=== PATIENT | female | born 1935 | race Caucasian/White ===

== ENCOUNTER 2019-08-31 10:08 | Day surgery (SDC) | payer OTHER ==
[~2019-08-31] VITALS: Ht 165.1 cm; Wt 75.9 kg
[~2019-08-31 10:08] MED LIST: ACET500 PO; ALLO300 PO; ASPI81CH; ASPI81CH PO; ASPI81EC PO; BYDUREON P2 MG/0.65 SQ; CILO50; COLCRYS0.6 MG; Cilostazol50 MG PO; ENAL10; ENAL10 PO; ENAL5 PO; GLIP10ER PO; GLIP5; LEVSOD125; LEVSOD125 PO; LEVSOD137 PO; LOVA20 PO; LOVA40; Lovastatin20 MG; MECL12.5 PO; METF500 PO; METO25; METO25ER; METO50 PO; MULTI VITAMIN1 EACH; NITR.4SL SL; Omeprazole20 M1; PIOG15 PO; RANI150 PO; SITA50T2
[2019-08-31] MEDS ORDERED: LEVSOD112 PO (10:20)
[2019-08-31] MEDS ORDERED: NITR.4SL SL (10:21)
[2019-08-31] MEDS ORDERED: COLCRYS0.6 M1 PO (10:22)
[2019-08-31] MEDS ORDERED: Aspir 8181 MG PO (10:42)
--- NOTE | 2019-08-31 12:15 | NUR ---
DISCHARGE PT REMAINED A&OX3 DURING RECOVERY AND DENIED ANY PAIN. IV DC'D WITH CANDAVE IN TACT. DISCHARGE PAPERWORK GONE OVER WITH PT. PT VERBALLY STATED THE UNDERSTANDING OF THE DISCHARGE EDUCATION AND DENIED ANY QUESTIONS AT THIS TIME. PT WHEELED OUT BY THIS NURSE.
== END 2019-08-31 22:51 | disposition home or self-care (01) ==
LOC: MHTC 10:08
DX: I08.2 Rheumatic disorders of both aortic and tricuspid valves (principal); I70.0 Atherosclerosis of aorta; I10 Essential (primary) hypertension; E66.01 Morbid (severe) obesity due to excess calories; E11.9 Type 2 diabetes mellitus without complications; Z79.84 Long term (current) use of oral hypoglycemic drugs; Z79.82 Long term (current) use of aspirin; Z79.899 Other long term (current) drug therapy; E78.00 Pure hypercholesterolemia, unspecified; Z88.5 Allergy status to narcotic agent; Z88.8 Allergy status to other drugs, medicaments and biological substances; Z88.6 Allergy status to analgesic agent; Z88.4 Allergy status to anesthetic agent; Z91.041 Radiographic dye allergy status; Z68.29 Body mass index [BMI] 29.0-29.9, adult
CPT/HCPCS: 93312; 93325; J2704; J7120

== ENCOUNTER → 2019-09-08 | Outpatient (CLI) | payer OTHER ==
[~2019-09-08] MED LIST changes: +Aspir 8181 MG PO; +COLCRYS0.6 M1 PO; +LEVSOD112 PO
[2019-09-08 10:45] LABS: BASOPHILS ABSOLUTE AUTO 0.06 K/mm3 (0.00-0.23); BASOPHILS PERCENT AUTO 1 % (0-2); EOSINOPHILS ABSOLUTE AUTO 0.19 K/mm3 (0.00-0.68); EOSINOPHILS PERCENT AUTO 3 % (0-6); Hematocrit 35.6 % (33.0-51.0); IMMATURE GRAN ABSOLUTE AUTO 0.03 K/mm3 (0.00-0.10); IMMATURE GRAN PERCENT AUTO 0 % (0-1); LYMPHOCYTES ABSOLUTE AUTO 2.18 K/mm3 (0.84-5.20); LYMPHOCYTES PERCENT AUTO 29 % (21-46); MONOCYTES ABSOLUTE AUTO 0.63 K/mm3 (0.16-1.47); MONOCYTES PERCENT AUTO 8 % (4-13); Mean Corpuscular HGB 30.9 pg (26.0-34.0); Mean Corpuscular HGB Conc 33.7 g/dL (31.5-36.5); Mean Platelet Volume 10.2 fL (9.1-12.4); NEUTROPHILS ABSOLUTE AUTO 4.54 K/mm3 (1.96-9.15); NEUTROPHILS PERCENT AUTO 59 % (41-73); Platelet Count 180 K/mm3 (150-400); RDW Coefficient Variation 13.1 % (11.7-14.2); RDW Standard Deviation 43.9 fL (35.1-46.3); Red Blood Cell Count 3.88 M/mm3 (3.80-5.20); White Blood Cell Count 7.63 K/mm3 (4.00-11.30)
[2019-09-08 10:47] LABS: Mean Corpuscular Volume 92 fL (80-100)
[2019-09-08 11:01] LABS: Alanine Aminotransfer (ALT/SGP 14 U/L (12-78); Albumin, Blood 3.8 g/dL (3.4-5.0); Alk Phos 60 U/L (40-126); Anion Gap 10 mmol/L (6-16); Aspartate Aminotrans (AST/SGOT 19 U/L (12-37); Bilirubin, Total 0.4 mg/dL (0.1-1.0); Blood Urea Nitrogen 36 mg/dL (8-24); Bun/Creatinine Ratio 24.3 (12.0-20.0); CO2, Blood 25 mmol/L (21-32); Calcium, Blood 9.1 mg/dL (8.5-10.1); Chloride, Blood 98 mmol/L (98-108); Creatinine, Blood 1.48 mg/dL (0.40-1.00); Globulin, Blood 3.8 g/dL (2.2-4.0); Glomerular Filtration Rate 34 (60-); Glucose, Blood 112 mg/dL (70-99); Potassium, Blood 4.6 mmol/L (3.5-5.5); Sodium, Blood 133 mmol/L (136-145); Total Protein, Blood 7.6 g/dL (6.4-8.2)
[2019-09-08 11:02] LABS: Troponin I <0.017 ng/mL (0.000-0.040)
== END | disposition home or self-care (01) ==
LOC: LAB SHORT 10:41 → LAB EV 10:41
PROVIDERS: Physician Assistant Medical
DX: R07.9 Chest pain, unspecified (principal)
CPT/HCPCS: 80053; 84484; 85025

== ENCOUNTER 2022-08-06 17:10 | Emergency (ER) | payer OTHER ==
[~2022-08-06] VITALS: Ht 165.1 cm; Wt 77.1 kg
[2022-08-06 17:19] VITALS: BP 189/84
== END 2022-08-06 19:03 | disposition home or self-care (01) ==
LOC: ER 17:10
DX: S01.01XA Laceration without foreign body of scalp, initial encounter (principal); S40.011A Contusion of right shoulder, initial encounter; W01.10XA Fall on same level from slipping, tripping and stumbling with subsequent striking against unspecified object, initial encounter; Z88.8 Allergy status to other drugs, medicaments and biological substances; Z88.5 Allergy status to narcotic agent; Z79.899 Other long term (current) drug therapy; Z79.82 Long term (current) use of aspirin
CPT/HCPCS: 70450; 73030; 99284-25; A9270

== ENCOUNTER 2023-04-01 11:37 | Inpatient (IN) | payer OTHER ==
[~2023-04-01] VITALS: Ht 162.6 cm; Wt 74.8 kg
[~2023-04-01 11:37] MED LIST changes: -ENAL5 PO; -LEVSOD112 PO; -LOVA40; +LOVA40 PO; -METO25; +METO25 PO
[2023-04-01 12:29] LABS: BASOPHILS ABSOLUTE AUTO 0.07 K/mm3 (0.00-0.23); BASOPHILS PERCENT AUTO 1 % (0-2); EOSINOPHILS ABSOLUTE AUTO 0.58 K/mm3 (0.00-0.68); EOSINOPHILS PERCENT AUTO 7 % (0-6); Hematocrit 32.5 % (33.0-51.0); IMMATURE GRAN ABSOLUTE AUTO 0.03 K/mm3 (0.00-0.10); IMMATURE GRAN PERCENT AUTO 0 % (0-1); LYMPHOCYTES ABSOLUTE AUTO 1.96 K/mm3 (0.84-5.20); LYMPHOCYTES PERCENT AUTO 24 % (21-46); MONOCYTES ABSOLUTE AUTO 0.81 K/mm3 (0.16-1.47); MONOCYTES PERCENT AUTO 10 % (4-13); Mean Corpuscular HGB 30.4 pg (26.0-34.0); Mean Corpuscular HGB Conc 33.8 g/dL (31.5-36.5); Mean Corpuscular Volume 90 fL (80-100); Mean Platelet Volume 10.1 fL (9.1-12.4); NEUTROPHILS ABSOLUTE AUTO 4.89 K/mm3 (1.96-9.15); NEUTROPHILS PERCENT AUTO 59 % (41-73); Platelet Count 256 K/mm3 (150-400); RDW Coefficient Variation 12.8 % (11.7-14.2); RDW Standard Deviation 42.3 fL (35.1-46.3); Red Blood Cell Count 3.62 M/mm3 (3.80-5.20); White Blood Cell Count 8.34 K/mm3 (4.00-11.30)
[2023-04-01 13:14] LABS: Albumin, Blood 2.9 g/dL (3.4-5.0); Albumin/Globulin Ratio 0.7 (0.8-1.8); Bilirubin, Total 0.4 mg/dL (0.1-1.0); Bun/Creatinine Ratio 23.7 (12.0-20.0); Calcium, Blood 14.2 mg/dL (8.5-10.1); Creatinine, Blood 1.14 mg/dL (0.40-1.00); Globulin, Blood 4.3 g/dL (2.2-4.0); Potassium, Blood 4.7 mmol/L (3.5-5.5); Total Protein, Blood 7.2 g/dL (6.4-8.2)
[2023-04-01 15:23] LABS: Source, Urine Clean Catch
[2023-04-01 15:27] LABS: Appearance, Urine Hazy (Clear); Bilirubin, Urine Neg (Neg); Blood, Urine Neg (Neg); Color, Urine Yellow (P-Yellow); Glucose Qualitative, Urine Neg (Neg); Ketones, Urine Neg (Neg); Leukocyte Esterase, Urine 2+ (Neg); Nitrite, Urine Neg (Neg); Protein, Urine Neg (Neg); Urobilinogen, Urine NORM (Normal)
[2023-04-01] MEDS ORDERED: ACET500 PO (15:31)
[2023-04-01] MEDS ORDERED: MULVITA PO (15:31)
[2023-04-01 15:52] LABS: Bacteria Many /hpf; Hyaline Casts 0-2 /lpf (0-2); Red Blood Cells, Urine 0-2 /hpf (0-2); Squamous Epithelial Cells Rare /hpf (Few)
[2023-04-01 20:05] VITALS: BP 209/85
--- NOTE | 2023-04-01 22:02 | NUR ---
ADMIT NOTE HANDOFF GIVEN TO DAY RN. DAY RN THEN REPORTED TO ME. PT ARRIVED TO FLOOR VIA GURNEY. PT ORIENTED TO UNIT. PERSONAL POSSESSIONS WITH PT. CALL BUTTON WITHIN REACH. IV FLUIDS INFUSING ORDERED. TELEMETRY IN PLACE. HYPERTENSION NOTED, HOSPITALIST CALLED. MEDICATED PER EMAR.
[2023-04-01 22:27] VITALS: BP 168/77
[2023-04-01] MEDS ORDERED: ERYT.5TO BOTHEYES (23:48)
[2023-04-02] VITALS (8 sets, daily range): BP systolic 138–192; BP diastolic 58–89
--- NOTE | 2023-04-02 04:15 | NUR ---
SHIFT SUMMARY ADMITTED FOR HYPERCALCEMIA. FULL CODE. FOUND TO HAVE UTI. IV FLUIDS INFUSING ORDERED. TELEMETRY: NSR @ 77 BPM. ACHS CBG'S. MONITORING LABS. SHE IS ON RA. REGULAR DIET. A&O X4. BLOOD CULTURES SENT. PRN HYDRALAZINE GIVEN FOR HTN.
[2023-04-02 06:53] LABS: BASOPHILS ABSOLUTE AUTO 0.07 K/mm3 (0.00-0.23); BASOPHILS PERCENT AUTO 1 % (0-2); EOSINOPHILS ABSOLUTE AUTO 0.39 K/mm3 (0.00-0.68); EOSINOPHILS PERCENT AUTO 4 % (0-6); Hematocrit 38.2 % (33.0-51.0); Hemoglobin 13.1 g/dL (11.5-16.0); IMMATURE GRAN ABSOLUTE AUTO 0.04 K/mm3 (0.00-0.10); IMMATURE GRAN PERCENT AUTO 0 % (0-1); LYMPHOCYTES ABSOLUTE AUTO 1.01 K/mm3 (0.84-5.20); LYMPHOCYTES PERCENT AUTO 11 % (21-46); MONOCYTES ABSOLUTE AUTO 0.79 K/mm3 (0.16-1.47); MONOCYTES PERCENT AUTO 8 % (4-13); Mean Corpuscular HGB 30.6 pg (26.0-34.0); Mean Corpuscular HGB Conc 34.3 g/dL (31.5-36.5); Mean Corpuscular Volume 89 fL (80-100); NEUTROPHILS ABSOLUTE AUTO 7.29 K/mm3 (1.96-9.15); NEUTROPHILS PERCENT AUTO 76 % (41-73); RDW Coefficient Variation 12.6 % (11.7-14.2); RDW Standard Deviation 41.2 fL (35.1-46.3); Red Blood Cell Count 4.28 M/mm3 (3.80-5.20); White Blood Cell Count 9.59 K/mm3 (4.00-11.30)
[2023-04-02 06:58] LABS: Mean Platelet Volume 11.2 fL (9.1-12.4)
[2023-04-02 07:09] LABS: Platelet Count 120 K/mm3 (150-400)
[2023-04-02 08:13] LABS: Albumin, Blood 2.9 g/dL (3.4-5.0); Albumin/Globulin Ratio 0.7 (0.8-1.8); Bilirubin, Total 0.3 mg/dL (0.1-1.0); Bun/Creatinine Ratio 22.8 (12.0-20.0); Calcium, Blood 12.8 mg/dL (8.5-10.1); Creatinine, Blood 1.14 mg/dL (0.40-1.00); Globulin, Blood 3.9 g/dL (2.2-4.0); Potassium, Blood 3.9 mmol/L (3.5-5.5); Total Protein, Blood 6.8 g/dL (6.4-8.2)
--- NOTE | 2023-04-02 17:20 | NUR ---
SHIFT SUMMARY: PT IS AN 87 YEAR OLD FEMALE HERE COMPLAINING OF WEAKNESS. HER CALCIUM AND VITAMIN D LEVELS WERE HIGH LIKELY CONTRIBUTING TO THE HYPERCALCEMIA. HER DAUGHTER MASSIMO IS AT BEDSIDE AND CARES FOR HER MOTHER FOR SHE LIVES WITH HER. THE PATIENT IS AMBULATORY TO THE RESTROOM WITH FWW/GAIT AND STAFF ASSISTANCE. SHE IS WEAK WHILE AMBULATING, BUT ABLE TO TRANSFER FROM THE BED TO THE RESTROOM. SHE DID BECOME NAUSEATED WHILE TOILETING TODAY AND VOMITED AND ONCE AGAIN THIS AFTERNOON WHILE SHE WAS IN BED. SHE STATES THAT IT COMES ON SUDDEN AND ONCE SHE VOMITS SHE FEELS BETTER. SHE DOES HAVE POST NASAL DRIP VOICED BY THE PATIENT'S DAUGHTER AND IT HAS GOTTEN WORSE LATELY AND IT WILL CAUSE THE PATIENT TO GAG. PATIENT IS ALERT AND ORIENTED AND USES HER CALL LIGHT APPROPRIATELY. SHE IS NOT IMPULSIVE. SHE HAS BEEN HYPERTENSION; CALL MADE TO DR. ZIMMERMAN ADVISED TO D/C MEDS AND TO GIVE PRN HYDRALAZINE FOR SBP GREATER THAN 160. SHE REFUSED TO WORK WITH PT/OT TODAY. SHE IS IN BED RESTING, NO SIGNS OR SYMPTOMS OF DISTRESS, CALL LIGHT WITH IN REACH, BED IN LOWEST POSITION, AND DAUGHTER MASSIMO AT BEDSIDE. PLAN OF CARE ONGOING.
--- NOTE | 2023-04-02 21:42 | NUR ---
VITALS NOT TRANSFERING, DELAYED PERTINENT VITALS ARE BP: 170/67 HR: 90 PRN HTN MEDICATION GIVEN, SEE EMAR. CORE SHAPER TOP WILL ENTER CURRENT VITALS WHEN ABLE.
[2023-04-03] VITALS (10 sets, daily range): BP systolic 104–184; BP diastolic 56–93
--- NOTE | 2023-04-03 05:19 | NUR ---
SHIFT SUMMARY ADMITTED FOR HYPERCALCEMIA/UTI. FULL CODE. CALCITONIN IS SCHEDULED, IV ANTIB RX IS SCHEDULED. PRN HYDRALAZINE GIVEN FOR HTN. TELEMETRY: NSR @ 76 BPM. MECH SOFT/GRND MEAT DIET. ACHS CBG'S, LOW SS. ON RA. RECENT DOUBLE EYELID SURGERY ON 03/26/23 OUTPT. SHE IS WEAK, WE ARE DOING 1 ASSIST TO BSC.
[2023-04-03 06:11] LABS: BASOPHILS ABSOLUTE AUTO 0.05 K/mm3 (0.00-0.23); BASOPHILS PERCENT AUTO 0 % (0-2); EOSINOPHILS ABSOLUTE AUTO 0.01 K/mm3 (0.00-0.68); EOSINOPHILS PERCENT AUTO 0 % (0-6); Hematocrit 30.8 % (33.0-51.0); Hemoglobin 10.4 g/dL (11.5-16.0); IMMATURE GRAN ABSOLUTE AUTO 0.05 K/mm3 (0.00-0.10); IMMATURE GRAN PERCENT AUTO 0 % (0-1); LYMPHOCYTES ABSOLUTE AUTO 1.32 K/mm3 (0.84-5.20); LYMPHOCYTES PERCENT AUTO 10 % (21-46); MONOCYTES ABSOLUTE AUTO 1.14 K/mm3 (0.16-1.47); MONOCYTES PERCENT AUTO 9 % (4-13); Mean Corpuscular HGB 30.5 pg (26.0-34.0); Mean Corpuscular HGB Conc 33.8 g/dL (31.5-36.5); Mean Corpuscular Volume 90 fL (80-100); Mean Platelet Volume 9.7 fL (9.1-12.4); NEUTROPHILS ABSOLUTE AUTO 10.54 K/mm3 (1.96-9.15); NEUTROPHILS PERCENT AUTO 80 % (41-73); Platelet Count 229 K/mm3 (150-400); RDW Coefficient Variation 13.2 % (11.7-14.2); RDW Standard Deviation 43.6 fL (35.1-46.3); Red Blood Cell Count 3.41 M/mm3 (3.80-5.20); White Blood Cell Count 13.11 K/mm3 (4.00-11.30)
[2023-04-03 06:31] LABS: Bun/Creatinine Ratio 16.3 (12.0-20.0); Calcium, Blood 11.2 mg/dL (8.5-10.1); Creatinine, Blood 1.72 mg/dL (0.40-1.00); Potassium, Blood 3.6 mmol/L (3.5-5.5)
--- NOTE | 2023-04-03 20:31 | NUR ---
SHIFT SUMMARY PATIENT UP TO CHAIR FOR BREAKFAST AND LUCH, BOTH TIMES BECAME NAUSOUS DR ZIMMERMAN MADE AWARE, BP ACUTALLY LOW THIS AM. ZOFRAN GIVEN UP TO BATHROOM 2 TIMES, THEN LATER TOO WEAK TO GET UP TO BATHROOM. ASSISTED 2 PERSON UP TO COMMODE AND THEN BACK TO BED FOR DINNER, PATIENT WITH VOMITING AFTER DINNER, ZOFRAN GIVEN PER EMAR. TYELENOL FOR HEADACHE, HYDRALAZINE PRN WHICH WORKED INITIALLY, BUT THEN BP ELEVATING AGAIN. GRACE MAE NOTIFIED OF HYPERTENSTION, HEADACHE AND VOMITING. . LABETALOL ORDERD, NIGHT RN NOTIFIED. BED IN LOW POSTION, CALL LIGHT IN REACH. PATIENT TURNED Q2H. SHE IS ABLE TO MAKE NEEDS KNOWN.
--- NOTE | 2023-04-04 04:04 | NUR ---
SHIFT SUMMARY ADMITTED FOR HYPERCALCEMIA. ALSO HAS A UTI. CALITONIN INJECTIONS SCHEDULED. IV ANTIB RX SCHEDULED. PRN HYDRALAZINE AVAILABLE FOR HTN. SHE SEEMS WEAKER THAN SHE WAS ON PREVIOUS SHIFTS. SHE IS NOW A 2 ASSIST TO BSC OR INCONTINENT/PUREWICK. ON ADMIT SHE WAS A 1 ASSIST TO THE BATHROOM. TELEMETRY: NSR @ 76 BPM. DOUBLE EYELID SURGERY PERFORMED ON 03/26/23 PREVIOUS TO ADMIT. SHE IS A&O X4. ON RA. ACHS CBG'S. MECH SOFT DIET.
[2023-04-04 04:30] VITALS: BP 135/91
[2023-04-04 05:15] LABS: BASOPHILS ABSOLUTE AUTO 0.06 K/mm3 (0.00-0.23); BASOPHILS PERCENT AUTO 1 % (0-2); EOSINOPHILS ABSOLUTE AUTO 0.12 K/mm3 (0.00-0.68); EOSINOPHILS PERCENT AUTO 1 % (0-6); Hematocrit 30.2 % (33.0-51.0); Hemoglobin 10.2 g/dL (11.5-16.0); IMMATURE GRAN ABSOLUTE AUTO 0.04 K/mm3 (0.00-0.10); IMMATURE GRAN PERCENT AUTO 0 % (0-1); LYMPHOCYTES ABSOLUTE AUTO 1.48 K/mm3 (0.84-5.20); LYMPHOCYTES PERCENT AUTO 13 % (21-46); MONOCYTES PERCENT AUTO 10 % (4-13); Mean Corpuscular HGB 30.4 pg (26.0-34.0); Mean Corpuscular HGB Conc 33.8 g/dL (31.5-36.5); Mean Corpuscular Volume 90 fL (80-100); Mean Platelet Volume 9.6 fL (9.1-12.4); NEUTROPHILS ABSOLUTE AUTO 8.48 K/mm3 (1.96-9.15); NEUTROPHILS PERCENT AUTO 75 % (41-73); Platelet Count 234 K/mm3 (150-400); RDW Coefficient Variation 13.1 % (11.7-14.2); RDW Standard Deviation 43.5 fL (35.1-46.3); Red Blood Cell Count 3.35 M/mm3 (3.80-5.20); White Blood Cell Count 11.28 K/mm3 (4.00-11.30)
[2023-04-04 06:33] LABS: Bun/Creatinine Ratio 15.6 (12.0-20.0); Calcium, Blood 10.4 mg/dL (8.5-10.1); Creatinine, Blood 2.05 mg/dL (0.40-1.00); Potassium, Blood 3.5 mmol/L (3.5-5.5)
[2023-04-04 07:20] VITALS: BP 168/61
[2023-04-04 15:43] VITALS: BP 169/72
--- NOTE | 2023-04-04 16:51 | NUR ---
Upon receiving a request for spiritual care for the patient, I visited the patient. She is lying in bed and crying when I enter the room. She tells me that her dtr will be giving her beloved dog, Quang, away. We talk about her family, the deaths of her loved ones and the family unit complications and the patient's possible d/c to a SNF in the next few days. We also explore her coping skills and resources, we talk at length about her Hinduism haile and we talk about questions and ways to approach the discussions with her dtr about the dog. We talk about situations that may be best for the dog. I normalize her experience, anxiety containment, and provide therapeutic listening and prayer. Patient responded well and showed signs of an elevated mood and greater peace about her situation.
--- NOTE | 2023-04-04 18:03 | NUR ---
SHIFT SUMMARY NO ACUTE CHANGES THIS SHIFT. CALL LIGHT WITHIN REACH AND PT ABLE TO MAKE NEEDS KNOWN.
[2023-04-04 20:25] VITALS: BP 129/45
--- NOTE | 2023-04-05 03:59 | NUR ---
STROKE PROGRAM COORDINATOR SUMMARY VSS. DAUGHTER VISITED AT SHIFT COMMENCE. AFFECT CHEERFUL. DENIED PAIN. NS INFUSING AT 75 ML/HR. MED TELE NSR. REFUSED PUREWICK, REPOSITIONED AND CHANGED NEEDED - SEE DOC FLOW SHEETS. ABLE TO REPOSITION SELF WELL FOR COMFORT. HAS BEEN RESTING QUIETLY WITH FEW INTERRUPTIONS. CALL LIGHT IN REACH. RAILS UP X 2 FOR SAFETY. WILL CONTINUE TO MONITOR
[2023-04-05 04:50] VITALS: BP 147/57
[2023-04-05 05:45] LABS: BASOPHILS ABSOLUTE AUTO 0.06 K/mm3 (0.00-0.23); BASOPHILS PERCENT AUTO 1 % (0-2); EOSINOPHILS ABSOLUTE AUTO 0.27 K/mm3 (0.00-0.68); EOSINOPHILS PERCENT AUTO 3 % (0-6); Hematocrit 29.2 % (33.0-51.0); Hemoglobin 9.7 g/dL (11.5-16.0); IMMATURE GRAN ABSOLUTE AUTO 0.03 K/mm3 (0.00-0.10); IMMATURE GRAN PERCENT AUTO 0 % (0-1); LYMPHOCYTES ABSOLUTE AUTO 1.44 K/mm3 (0.84-5.20); LYMPHOCYTES PERCENT AUTO 18 % (21-46); MONOCYTES ABSOLUTE AUTO 0.87 K/mm3 (0.16-1.47); MONOCYTES PERCENT AUTO 11 % (4-13); Mean Corpuscular HGB 30.3 pg (26.0-34.0); Mean Corpuscular HGB Conc 33.2 g/dL (31.5-36.5); Mean Corpuscular Volume 91 fL (80-100); Mean Platelet Volume 10.1 fL (9.1-12.4); NEUTROPHILS ABSOLUTE AUTO 5.36 K/mm3 (1.96-9.15); NEUTROPHILS PERCENT AUTO 67 % (41-73); Platelet Count 226 K/mm3 (150-400); RDW Coefficient Variation 13.2 % (11.7-14.2); RDW Standard Deviation 43.8 fL (35.1-46.3); White Blood Cell Count 8.03 K/mm3 (4.00-11.30)
[2023-04-05 06:06] LABS: Bun/Creatinine Ratio 17.9 (12.0-20.0); Calcium, Blood 10.6 mg/dL (8.5-10.1); Creatinine, Blood 2.01 mg/dL (0.40-1.00); Potassium, Blood 3.6 mmol/L (3.5-5.5)
[2023-04-05 07:48] VITALS: BP 150/75
[2023-04-05 07:57] LABS: PTHRP BY LC-MS/MS,PLASMA 7.2 pmol/L (0.0-3.4)
[2023-04-05 16:42] VITALS: BP 176/71
--- NOTE | 2023-04-05 18:39 | NUR ---
DAYSHIFT SUMMARY Patient alert & oriented 3, denies pain. Worked with PT/OT today. S/p surgery on her eye lids, sutures biaterally, CDI, ABX ointment applied. Bruising noted on checkbones d/t surgery. Patient incontinent at times, purewick in place. OOB in chair for meals. IV ABx administred. VSS. Will continue plan of care.
[2023-04-05 20:00] VITALS: BP 185/70
--- NOTE | 2023-04-06 04:15 | NUR ---
SHIFT SUMMARY PATIENT HAD NO ACUTE CHANGES. AXOX 3 AND FORGETFUL. ONE ASSIST TO BSC. PIV REMAINS INTACT. NS INFUSING AT 50 mL/HR. CBG 206. TELE MONITOR NSR 65. PUREWICK IN PLACE. REPORTED GENERAL PAIN AND TYLENOL 650 MG GIVEN PER EMAR. SUTURES BILATERALY EYELIDS. DENIES CHEST PAIN, SOB, AND N/V. CALL LIGHT IN REACH. BED IN LOWEST POSITION. WILL CONTINUE TO MONITOR UNTIL DAY SHIFT NURSE ASSUMES CARE.
[2023-04-06 05:10] VITALS: BP 180/65
[2023-04-06 05:42] LABS: BASOPHILS ABSOLUTE AUTO 0.07 K/mm3 (0.00-0.23); BASOPHILS PERCENT AUTO 1 % (0-2); EOSINOPHILS ABSOLUTE AUTO 0.61 K/mm3 (0.00-0.68); EOSINOPHILS PERCENT AUTO 9 % (0-6); Hematocrit 29.9 % (33.0-51.0); Hemoglobin 10.1 g/dL (11.5-16.0); IMMATURE GRAN ABSOLUTE AUTO 0.04 K/mm3 (0.00-0.10); IMMATURE GRAN PERCENT AUTO 1 % (0-1); LYMPHOCYTES ABSOLUTE AUTO 1.39 K/mm3 (0.84-5.20); LYMPHOCYTES PERCENT AUTO 19 % (21-46); MONOCYTES PERCENT AUTO 11 % (4-13); Mean Corpuscular HGB 30.6 pg (26.0-34.0); Mean Corpuscular HGB Conc 33.8 g/dL (31.5-36.5); Mean Corpuscular Volume 91 fL (80-100); Mean Platelet Volume 10.2 fL (9.1-12.4); NEUTROPHILS ABSOLUTE AUTO 4.25 K/mm3 (1.96-9.15); NEUTROPHILS PERCENT AUTO 59 % (41-73); Platelet Count 233 K/mm3 (150-400); RDW Coefficient Variation 12.9 % (11.7-14.2); RDW Standard Deviation 43.1 fL (35.1-46.3); White Blood Cell Count 7.16 K/mm3 (4.00-11.30)
[2023-04-06 06:14] VITALS: BP 148/57
--- NOTE | 2023-04-06 06:15 | NUR ---
BP 180/65 AND IV APRESOLINE 10 MG GIVEN FOR SBP>160 BP 148/57 ON RECHECK. WCTM
[2023-04-06 06:46] LABS: Bun/Creatinine Ratio 19.6 (12.0-20.0); Calcium, Blood 10.6 mg/dL (8.5-10.1); Creatinine, Blood 1.94 mg/dL (0.40-1.00); Potassium, Blood 3.8 mmol/L (3.5-5.5)
[2023-04-06 07:36] VITALS: BP 147/63
--- NOTE | 2023-04-06 16:34 | NUR ---
DAYSHIFT SUMMARY Patient alert & oriented x2-3. Pleasant & cooperative with cares. Patient worked with PT, increased weakness noted today. MD ordered IV fluids continous. Plan to DC to facility possibly saturday. CBGs AM-136, Lunch-217, Humalog SSI administred. Patient incontinent of B/B. Sutures along bilat eyelids CDI, eye ointment applied. Vitals stable. Will continue plan of care.
[2023-04-06 16:38] VITALS: BP 161/64
[2023-04-06 19:55] VITALS: BP 167/54
[2023-04-07 01:31] VITALS: BP 174/61
--- NOTE | 2023-04-07 03:00 | NUR ---
SHIFT SUMMARY PT AWAKE DURING SHIFT REPORT, RESTING QUIETLY WATCHING TV. MEDS TAKEN WHOLE WITH WATER W/O DIFFICULTY. PT THEN WANTING TO GO TO SLEEP. POSITIONED FOR COMFORT. IVF'S INFUSING PER EMAR. PT LATER REPORTED IV LEAKING; IVF'S STOPPED. NEW IV ATTEMPTED AND PLACED TO RAC. IVF'S RESTARTED PER EMAR. PT REPORTING NO BM SINCE PRIORT TO ADMIT; NOTE LEFT FOR BOWEL CARE. PT POSITIONED FOR COMFORT. DENIED FURTHER NEEDS TO PRESENT. CALL LT IN REACH.
[2023-04-07 06:28] LABS: Bun/Creatinine Ratio 19.4 (12.0-20.0); Calcium, Blood 10.5 mg/dL (8.5-10.1); Creatinine, Blood 1.91 mg/dL (0.40-1.00); Potassium, Blood 3.7 mmol/L (3.5-5.5)
[2023-04-07 07:57] VITALS: BP 150/62
[2023-04-07 15:34] VITALS: BP 146/60
--- NOTE | 2023-04-07 17:12 | NUR ---
SHIFT SUMMARY PATIENT IS ALERT AND ORIENTED 3-4. PATIENT HAS HAD NO ACUTE EVENTS THIS SHIFT. VITAL SIGNS REVIEWED. PATIENT HAS BEEN ALERT AND VISITING WITH FAMILY MOST OF SHIFT. PATIENT HAS COMPLAINED OF A HEADACHE THIS SHIFT, MEDICATED PER EMAR. PATIENT HAS NOT COMPLAINED OF SOB, NAUSEA OR VOMITTING THIS SHIFT. BED IN LOCKED AND LOWEST POSITION. CALL LIGHT IN PLACE. WILL MONITOR UNTIL SHIFT CHANGE.
--- NOTE | 2023-04-07 18:14 | NUR ---
NO ACUTE CHANGES, TRANSFERRED FROM SCU, ALERT AND ORIENTED, PLEASANT AND COOPERATIVE, PERWIK IN PLACE, EYE BRUISING DUE TO EYE LID SURGERY, ACHS LAST BS 176, TELE NSR, CALCIUM NOW AT 10.5, CALL LIGHT WITH IN REACH, WILL RELAY TO PMRN
[2023-04-07 19:21] VITALS: BP 139/57
[2023-04-08 03:39] VITALS: BP 159/64
[2023-04-08 05:33] LABS: Bun/Creatinine Ratio 19.6 (12.0-20.0); Calcium, Blood 10.1 mg/dL (8.5-10.1); Creatinine, Blood 2.14 mg/dL (0.40-1.00); Potassium, Blood 3.8 mmol/L (3.5-5.5)
[2023-04-08 07:27] VITALS: BP 146/64
[2023-04-08 08:32] VITALS: BP 170/74
[2023-04-08 15:06] VITALS: BP 154/66
--- NOTE | 2023-04-08 17:55 | NUR ---
MAKES NEEDS KNOWN, FORGETFUL, PLEASANT TO CARE, PATIENT VASAL VAGALED THIS AM, RECOVERED EASILY, STOOL IMPACTION, MEDICATIONED FOR BM, TELE HEART NEVER STOPPED DURING VASAL VAGAL. DAUGHTER HELPFUL WITH CARE, NEW IV TO LEFT AC, PM BS 172 COVERED WITH ONE UNIT INSULIN, VSS, CALL LIGHT WITH IN REACH, WILL RELAY TO PM RN
[2023-04-08 21:04] VITALS: BP 158/72
[2023-04-09 02:17] VITALS: BP 141/63
[2023-04-09 06:05] LABS: Bun/Creatinine Ratio 17.8 (12.0-20.0); Calcium, Blood 9.1 mg/dL (8.5-10.1); Creatinine, Blood 2.3 mg/dL (0.40-1.00); Potassium, Blood 3.5 mmol/L (3.5-5.5)
[2023-04-09 08:03] VITALS: BP 141/73
[2023-04-09 15:55] VITALS: BP 115/61
--- NOTE | 2023-04-09 17:36 | NUR ---
SHIFT SUMMARY: PT A/O X 2, ONE ASSIST WITH WALKER AND GB, PLEASANT AND COOPERATIVE WITH CARE. PT CONTINUES TO HAVE WEAKNESS WITH TRANSFERS. HAD VERY LARGE BM TODAY. PT DENIES ANY OTHER CONCERNS AT THIS TIME. UP TO CHAIR FOR DINNER.
[2023-04-09 19:30] VITALS: BP 161/63
[2023-04-10 00:28] VITALS: BP 141/65
[2023-04-10 04:08] VITALS: BP 157/62
--- NOTE | 2023-04-10 05:45 | NUR ---
SHIFT SUMMARY: SALEEM IS A&OX4, FORGETFUL AT TIMES. VSS, BP BELOW PARAMETERS AFTER ADMIN OF NIGHTTIME METOPROLOL. PUREWICK AND ATTENDS IN PLACE. SHE WAS ABLE TO SWALLOW HER MEDICATIONS WHOLE WITH WATER WITHOUT DIFFICULTY. SHE HAS RESTED QUIETLY THIS SHIFT, AROUSES EASILY TO VOICE AND RESPONDS APPROPRIATELY. SHE IS LYING IN BED WITH THE CALL LIGHT IN REACH. WCTM UNTIL REPORT IS GIVEN TO DAY SHIFT RN.
[2023-04-10 05:56] LABS: Albumin, Blood 2.1 g/dL (3.4-5.0); Anion Gap 7 mmol/L (6-16); Blood Urea Nitrogen 41 mg/dL (8-24); Bun/Creatinine Ratio 16.6 (12.0-20.0); CO2, Blood 25 mmol/L (21-32); Calcium, Blood 9.1 mg/dL (8.5-10.1); Chloride, Blood 104 mmol/L (98-108); Creatinine, Blood 2.47 mg/dL (0.40-1.00); Glomerular Filtration Rate 18 (60-); Glucose, Blood 113 mg/dL (70-99); Phosphorus, Blood 4.1 mg/dL (2.5-4.9); Potassium, Blood 3.6 mmol/L (3.5-5.5); Sodium, Blood 136 mmol/L (136-145)
[2023-04-10 07:57] VITALS: BP 131/61
[2023-04-10 15:37] VITALS: BP 132/55
--- NOTE | 2023-04-10 16:41 | NUR ---
PT IS AOX3 AND COOPERTIVE OF CARE. PT SEEMS VERY TIRED TO DAY, BUT WILL TALK AND INTERACT WHEN CARE IS GIVEN. PT IS A Q2 TURN AND NEEDS REPOSITIONED DUE TO REDESS TO COCCYX AREA. ATTEMPTED TO USE BARRIER CREAM AND PT STATED SHE IS ALLERGIC TO ALOT OF CREAMS. POWDER WAS APPLIED A REPLACEMENT. PT RESTING COMFORTABLY. PT IS INCONTENT OF BOWEL AND URINE WITH PERWICK IN PLACE. CALL LIGHT IS IN PLACE AND BED ALARM IS ON. WILL CONTINUE TO MONITOR.
--- NOTE | 2023-04-10 18:32 | NUR ---
PT ARRIVED TO ROOM AT 181. PT APPEARS AOX3, BUT FORGETS HIS LIMITS AND ALREADY TRIED TO GET OUT OF BED. PT WAS HELPED TO VOID WITH URINAL. PT HAD TEMP OF 102.[address] FLOWERS WAS NOTIFIED AND ORDERED MED TO EMAR. PT SETTLED INTO TO ROOM WILL CONTINUE TO MONITOR. BED ALARM IN PLACE.
[2023-04-10 21:10] VITALS: BP 151/65
[2023-04-11 03:02] VITALS: BP 126/59
[2023-04-11 05:26] LABS: Albumin, Blood 2.1 g/dL (3.4-5.0); Anion Gap 7 mmol/L (6-16); Blood Urea Nitrogen 41 mg/dL (8-24); CO2, Blood 25 mmol/L (21-32); Calcium, Blood 9.5 mg/dL (8.5-10.1); Chloride, Blood 105 mmol/L (98-108); Creatinine, Blood 2.57 mg/dL (0.40-1.00); Glomerular Filtration Rate 17 (60-); Glucose, Blood 136 mg/dL (70-99); Phosphorus, Blood 4.3 mg/dL (2.5-4.9); Potassium, Blood 3.7 mmol/L (3.5-5.5); Sodium, Blood 137 mmol/L (136-145)
--- NOTE | 2023-04-11 06:47 | NUR ---
SHIFT SUMMARY: SALEEM IS A&OX4. VSS, NO ACUTE EVENTS OVERNIGHT. KIDNEY FUNCTION CONTINUES TO TREND DOWN. SHE IS TOLERATING PO INTAKE WELL, ATTENDS AND PUREWICK IN PLACE, USES THE CALL LIGHT APPROPRIATELY. TURNED AND REPOSITIONED FREQUENTLY. IV TO LEFT AC PATENT. SHE IS LYING IN BED WITH THE CALL LIGHT IN REACH. WCTM UNTIL REPORT IS GIVEN TO DAY SHIFT RN.
[2023-04-11 07:56] VITALS: BP 132/61
--- NOTE | 2023-04-11 16:22 | NUR ---
NO ACUTE CHANGES AT THIS TIME. PT CONTINUE TO BE AOX3 AND COOPERATIVE OF CARE. PT IS A TWO PERONS WITH WALKER AND GAIT BELT TO CHAIR OR COMMODE. PT CONTINUES TO BE VERY TIRED AND FEELS WEAK. PT IS TURNED AND REPOSITIONED Q2 HRS DUE TO REDNESS TO COCCYX. CALL LIGHT IS WITHIN REACH. ANDREW ROME IS TO TAKE OVER CARE FOR THE REST TO THE SHIFT.
[2023-04-11 17:05] VITALS: BP 163/59
[2023-04-11 19:45] VITALS: BP 155/65
[2023-04-12] VITALS (8 sets, daily range): BP systolic 135–172; BP diastolic 49–91
--- NOTE | 2023-04-12 05:15 | NUR ---
Shift Summary Pt AOx3 with forgetfulness. Pt remained in bed t/o shift, incontinent voids and a large BM. Pt tired and weak, lethargic t/o shift. NS w/ KCL infusing per eMAR. No c/o of pain or nausea.
[2023-04-12 05:50] LABS: Albumin, Blood 2.2 g/dL (3.4-5.0); Anion Gap 4 mmol/L (6-16); Blood Urea Nitrogen 44 mg/dL (8-24); Bun/Creatinine Ratio 19.6 (12.0-20.0); CO2, Blood 25 mmol/L (21-32); Calcium, Blood 9.8 mg/dL (8.5-10.1); Chloride, Blood 108 mmol/L (98-108); Creatinine, Blood 2.24 mg/dL (0.40-1.00); Glomerular Filtration Rate 21 (60-); Glucose, Blood 167 mg/dL (70-99); Phosphorus, Blood 3.3 mg/dL (2.5-4.9); Potassium, Blood 4.1 mmol/L (3.5-5.5); Sodium, Blood 137 mmol/L (136-145); Uric Acid, Blood 4.8 mg/dL (2.6-6.0)
[2023-04-12 12:41] LABS: Eosinophils-Raw #,Urine 4
[2023-04-12 12:42] LABS: White Blood Cells Urine 0-2 /hpf (0-5)
--- NOTE | 2023-04-12 18:32 | NUR ---
SHIFT SUMMARY PATIENT UP TO CHAIR AT LUNCH AND FOR 2 HOURS, SHE DID HAVE INITIAL EPISODE OF AFLUTTER 135 AND AFTER RESTING 15 MINUTES SHE WAS BACK TO SINUS RYTHM IN 70S. SHE HAS NO COMPLAINTS TODAY. Q2H TURNING PROVIDED FOR PATIENT, REDNESS CONTINUES ON BOTTOM. DAUGHTER PRESENT MOST OF DAY. BED IN LOW POSITION, CALL LIGHT IN REACH. BED ALARM ON WHEN FAMILY NOT PRESENT. PATIENT IS NOT ATTEMPTING TO GET OUT OF BED ON HER OWN.
[2023-04-13 04:50] VITALS: BP 170/65
--- NOTE | 2023-04-13 06:05 | NUR ---
Shift Summary Pt hypertensive tonight, given PRN hydralazine twice when systolic was around 170. No c/o of pain or nausea. Purewick draining incontinent voids. No BM tonight. Pt slept comfortably t/o most of the night.
[2023-04-13 06:27] VITALS: BP 146/59
[2023-04-13 07:36] VITALS: BP 144/57
[2023-04-13 09:38] LABS: Albumin, Blood 2.2 g/dL (3.4-5.0); Anion Gap 9 mmol/L (6-16); Blood Urea Nitrogen 40 mg/dL (8-24); Bun/Creatinine Ratio 21.6 (12.0-20.0); CO2, Blood 22 mmol/L (21-32); Calcium, Blood 9.9 mg/dL (8.5-10.1); Chloride, Blood 110 mmol/L (98-108); Creatinine, Blood 1.85 mg/dL (0.40-1.00); Glomerular Filtration Rate 26 (60-); Glucose, Blood 169 mg/dL (70-99); Phosphorus, Blood 2.6 mg/dL (2.5-4.9); Potassium, Blood 3.7 mmol/L (3.5-5.5); Sodium, Blood 141 mmol/L (136-145)
[2023-04-13] MEDS ORDERED: PRAV20 PO ×2 (12:46→12:47)
[2023-04-13] MEDS ORDERED: SENN187 PO (12:47)
[2023-04-13] MEDS ORDERED: Amlodipine Besy10 MG PO (12:48)
[2023-04-13] MEDS ORDERED: FAMO10 PO (12:49)
[2023-04-13 13:09] LABS: SARS-Cov-2 (COVID-19) PCR, MMC POSITIVE (NEGATIVE)
--- NOTE | 2023-04-13 15:54 | NUR ---
Patient medically stable for discharge, accepted to [facility]. Tested for COVID per facility discharge protocol, patient positve for COVID. Asymptoamtic for COVID. Patient left at 1545 for SNF. Called and gave report to Charge Nurse accepting patient.
[2023-04-15 11:57] LABS: ALBUMIN 2.45 g/dL (3.75-5.01); ALPHA 1 GLOBULIN 0.44 g/dL (0.19-0.46); ALPHA 2 GLOBULIN 1.07 g/dL (0.48-1.05); BETA GLOBULIN 0.72 g/dL (0.48-1.10); GAMMA 0.72 g/dL (0.62-1.51); IMMUNOFIXATION REFLEX Not Done; TOTAL PROTEIN,SERUM 5.4 g/dL (6.3-8.2)
== END 2023-04-13 15:42 | DRG 640 ==
LOC: ER 11:37 → MEDS 11:38
PROVIDERS: Family Medicine; Hospitalist; Physician Assistant; Student in an Organized Health Care Education/Training Program; ADMIT Internal Medicine
DX: E86.0 Dehydration (principal); N17.0 Acute kidney failure with tubular necrosis; U07.1 COVID-19; N39.0 Urinary tract infection, site not specified; I48.92 Unspecified atrial flutter; E67.3 Hypervitaminosis D; E83.52 Hypercalcemia; I12.9 Hypertensive chronic kidney disease with stage 1 through stage 4 chronic kidney disease, or unspecified chronic kidney disease; N18.30 Chronic kidney disease, stage 3 unspecified; E11.22 Type 2 diabetes mellitus with diabetic chronic kidney disease; E03.9 Hypothyroidism, unspecified; E11.51 Type 2 diabetes mellitus with diabetic peripheral angiopathy without gangrene; Z66 Do not resuscitate; I25.10 Atherosclerotic heart disease of native coronary artery without angina pectoris; M19.90 Unspecified osteoarthritis, unspecified site; K21.9 Gastro-esophageal reflux disease without esophagitis; I48.91 Unspecified atrial fibrillation; R54 Age-related physical debility; E11.622 Type 2 diabetes mellitus with other skin ulcer; L89.321 Pressure ulcer of left buttock, stage 1; L89.311 Pressure ulcer of right buttock, stage 1; B96.20 Unspecified Escherichia coli [E. coli] as the cause of diseases classified elsewhere; Z88.5 Allergy status to narcotic agent; Z88.8 Allergy status to other drugs, medicaments and biological substances; Z91.048 Other nonmedicinal substance allergy status; Z79.84 Long term (current) use of oral hypoglycemic drugs; Z79.899 Other long term (current) drug therapy; Z79.890 Hormone replacement therapy; Z79.82 Long term (current) use of aspirin; I25.2 Old myocardial infarction; Z86.73 Personal history of transient ischemic attack (TIA), and cerebral infarction without residual deficits; Z90.710 Acquired absence of both cervix and uterus; Z95.1 Presence of aortocoronary bypass graft; Z98.890 Other specified postprocedural states
CPT/HCPCS: 36415; 71046; 71250; 74176; 76770; 80048; 80053; 80069; 81001; 82306; 82330; 82570; 82784; 82947; 83521; 83605; 83690; 83880; 83970; 84155; 84165; 84300; 84550; 85025; 86334; 87040; 87077; 87086; 87186; 87205; 93005; 93010; 96361; 96365; 96366; 96367; 96372; 96372-59; 96375; 96376; 97110; 97116; 97162; 97165; 97530; 97535; 99285-25; A9270; G0378; J0360; J0630; J0696; J1644; J1650; J1940; J2405; J3480; J3489; J7030; U0002